=== PATIENT | female | born 1965 | race Caucasian/White ===

== ENCOUNTER 2019-03-09 08:21 | Day surgery (SDC) | payer BC ==
[~2019-03-09 08:21] MED LIST: AMOX500 PO; CALCIUM PO; CYCL10 PO; DOCU100 PO; ESTROGEN SUPPLEMENT PO; GABA800 PO; GUMMY VITAMIN PO; HYDACE5 PO; IBUP800 PO; LIDO5TP TOP; NEOPOLHYDS OT; OXYACE5T PO; PRED10 PO; Ultram50 MG PO
== END 2019-03-09 23:24 | disposition home or self-care (01) ==
LOC: RAD 08:21 → MOI US 08:45 → RAD 08:45
DX: R92.0 Mammographic microcalcification found on diagnostic imaging of breast (principal)
CPT/HCPCS: 19281

== ENCOUNTER 2019-03-09 09:56 | Day surgery (SDC) | payer BC ==
[~2019-03-09] VITALS: Ht 152.4 cm; Wt 53.2 kg
--- NOTE | 2019-03-09 11:23 | NUR ---
03/09/19 1123 Jovanni Barcenas ATTEMPTED IV IN RIGHT HAND AND IT WOULD NOT THREAD. IV STARTED IN THE RIGHT WRIST AND PATIENT TOLERATED WELL.
--- NOTE | 2019-03-09 13:01 | NUR ---
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 SURGEON DID VIEW RADIOGRAPH PERSONALLY
== END 2019-03-09 14:09 | disposition home or self-care (01) ==
LOC: ORSCSDS 09:56
PROVIDERS: Surgery
PROC: 0HBU0ZZ Excision of Left Breast, Open Approach (ICD-10-PCS; principal; 2019-03-09 11:30)
DX: R92.8 Other abnormal and inconclusive findings on diagnostic imaging of breast (principal); D24.2 Benign neoplasm of left breast; J44.9 Chronic obstructive pulmonary disease, unspecified; F17.210 Nicotine dependence, cigarettes, uncomplicated
CPT/HCPCS: 88307; J1100; J2250; J2405; J2704; J3010; J7120

== ENCOUNTER 2019-04-12 04:22 | Emergency (ER) | payer BC ==
[~2019-04-12] VITALS: Ht 157.5 cm; Wt 50.8 kg
[2019-04-12] MEDS ORDERED: Cleocin HCl150 MG PO (04:51)
== END 2019-04-12 05:41 | disposition home or self-care (01) ==
LOC: ER 04:22
DX: L03.032 Cellulitis of left toe (principal); F17.210 Nicotine dependence, cigarettes, uncomplicated
CPT/HCPCS: 96372; 99283-25; J1885

== ENCOUNTER → 2019-12-21 | Outpatient (CLI) | payer BC ==
[~2019-12-21] MED LIST changes: +Cleocin HCl150 MG PO
[2019-12-21 09:48] LABS: BASOPHILS ABSOLUTE AUTO 0.03 K/mm3 (0.00-0.23); BASOPHILS PERCENT AUTO 0 % (0-2); EOSINOPHILS PERCENT AUTO 3 % (0-6); Hematocrit 38.1 % (33.0-51.0); Hemoglobin 12.8 g/dL (11.5-16.0); IMMATURE GRAN ABSOLUTE AUTO 0.02 K/mm3 (0.00-0.10); IMMATURE GRAN PERCENT AUTO 0 % (0-1); LYMPHOCYTES ABSOLUTE AUTO 3.02 K/mm3 (0.84-5.20); LYMPHOCYTES PERCENT AUTO 37 % (21-46); MONOCYTES ABSOLUTE AUTO 0.46 K/mm3 (0.16-1.47); MONOCYTES PERCENT AUTO 6 % (4-13); Mean Corpuscular HGB 32.5 pg (26.0-34.0); Mean Corpuscular HGB Conc 33.6 g/dL (31.5-36.5); Mean Corpuscular Volume 97 fL (80-100); Mean Platelet Volume 10.2 fL (9.1-12.4); NEUTROPHILS ABSOLUTE AUTO 4.42 K/mm3 (1.96-9.15); NEUTROPHILS PERCENT AUTO 54 % (41-73); Platelet Count 329 K/mm3 (150-400); RDW Coefficient Variation 13.7 % (11.7-14.2); RDW Standard Deviation 49.1 fL (35.1-46.3); Red Blood Cell Count 3.94 M/mm3 (3.80-5.20); White Blood Cell Count 8.15 K/mm3 (4.00-11.30)
[2019-12-21 10:03] LABS: Anion Gap 9 mmol/L (6-16); Blood Urea Nitrogen 12 mg/dL (8-24); Bun/Creatinine Ratio 19.4 (12.0-20.0); CO2, Blood 27 mmol/L (21-32); Calcium, Blood 8.8 mg/dL (8.5-10.1); Chloride, Blood 107 mmol/L (98-108); Creatinine, Blood 0.62 mg/dL (0.40-1.00); Glomerular Filtration Rate >60 (60-); Glucose, Blood 83 mg/dL (70-99); Potassium, Blood 3.7 mmol/L (3.5-5.5); Sodium, Blood 143 mmol/L (136-145)
[2019-12-21 10:04] LABS: Troponin I <0.017 ng/mL (0.000-0.040)
== END | disposition home or self-care (01) ==
LOC: LAB SHORT 09:44 → LAB EV 09:44
PROVIDERS: Physician Assistant Surgical
DX: R05 Cough (principal); R07.89 Other chest pain
CPT/HCPCS: 80048; 84484; 85025

== ENCOUNTER 2021-02-26 21:00 | Emergency (ER) | payer BC ==
[~2021-02-26] VITALS: Ht 154.9 cm; Wt 50.8 kg
[2021-02-26] MEDS ORDERED: MUPIROCIN15 GM TOP (23:43)
== END 2021-02-27 00:02 | disposition home or self-care (01) ==
LOC: ER 21:00
DX: H60.12 Cellulitis of left external ear (principal); F17.210 Nicotine dependence, cigarettes, uncomplicated; Z91.040 Latex allergy status; Z91.018 Allergy to other foods
CPT/HCPCS: 99282; A9270

== ENCOUNTER → 2021-07-16 | Outpatient (CLI) | payer BC ==
[~2021-07-16] MED LIST changes: +MUPIROCIN15 GM TOP
[2021-07-17 10:19] LABS: Candida species (DNA Probe) Negative (NEGATIVE); G. vaginalis (DNA Probe) Negative (NEGATIVE); T. vaginalis (DNA Probe) Negative (NEGATIVE)
== END | disposition home or self-care (01) ==
LOC: LAB SHORT 16:53 → LAB 16:53
PROVIDERS: Obstetrics & Gynecology
DX: N89.8 Other specified noninflammatory disorders of vagina (principal)
CPT/HCPCS: 87480; 87510; 87660

== ENCOUNTER → 2021-08-08 | Outpatient (CLI) | payer BC | END | disposition home or self-care (01) | LOC: LAB 15:29 → LAB SHORT 15:29 | DX: S41.101A Unspecified open wound of right upper arm, initial encounter (principal) | CPT/HCPCS: 87070; 87077; 87147; 87186; 87205 ==

== ENCOUNTER → 2021-09-28 | Outpatient (CLI) | payer BC ==
[2021-09-29 09:02] LABS: HIV SCREEN 4TH GENERATION WRFX Non Reactive (Non Reactive)
== END | disposition home or self-care (01) ==
LOC: LAB SHORT 15:05 → LAB 15:05
PROVIDERS: Internal Medicine Infectious Disease
DX: A49.02 Methicillin resistant Staphylococcus aureus infection, unspecified site (principal)
CPT/HCPCS: 87389

== ENCOUNTER 2022-07-16 10:20 | Day surgery (SDC) | payer BC ==
[~2022-07-16] VITALS: Ht 157.5 cm; Wt 64.8 kg
--- NOTE | 2022-07-16 13:17 | NUR ---
07/16/22 1317 MORENITA ANN 10MLS OF LIDOCAINE 1% INJECTED BEFORE START OF CASE BY DR. AMOR. 30MLS OF ROPIVACAINE 0.5% POURED ONTO STERILE FIELD FOR USE DURING CASE.
--- NOTE | 2022-07-16 14:42 | NUR ---
07/16/22 1442 Lisa Flanagan. PT ACCOMPANIED BY AT CHAIRSIDE. PT APPEARS IN GOOD SPIRITS AND IS TALKING WITH FAMILY AND NURSING STAFF. PT TOLERATING PO FLUIDS AND SNACKS WELL. PT DENIES PAIN AND NAUSEA. OP LIMB IS ELEVATED AND ICE APPLIED AT THE ANKLE.
== END 2022-07-16 15:15 | disposition home or self-care (01) ==
LOC: ORSCSDS 10:20
DX: M20.11 Hallux valgus (acquired), right foot (principal); M79.671 Pain in right foot; F17.210 Nicotine dependence, cigarettes, uncomplicated; F41.9 Anxiety disorder, unspecified
CPT/HCPCS: C1713; C1769; J1100; J2250; J2405; J2704; J2795; J3010; J7120

== ENCOUNTER 2025-06-28 11:01 | Day surgery (SDC) | payer OTHER ==
[~2025-06-28] VITALS: Ht 152.4 cm; Wt 49.2 kg
[2025-06-28] MEDS ORDERED: Clindamycin 900mg in D5W 50ML 0 ML IV ONE (11:31)
[2025-06-28] MEDS ORDERED: albuterol sulfate HF (11:39)
[2025-06-28] MEDS ORDERED: IBUP200 (11:40)
[2025-06-28] MEDS ORDERED: MASOPHEN500 M2 PO (11:40)
--- NOTE | 2025-06-28 12:12 | NUR ---
06/28/[address] SAID ANCEF IS OKAY TO USE DESPITE PCN ALLERGY; PT TOLERATED CLINDAMYCIN LAST SUREGERY WHEN GIVEN
[2025-06-28] MEDS ORDERED: CeFAZolin Sodium 2,000 MG VIAL ONE (12:27)
[2025-06-28] MEDS ORDERED: Lidocaine HCl 2% 10 ML SDA ONE (12:32)
[2025-06-28] MEDS ORDERED: Lidocaine HCl 2% 10 ML SDA INJ ONE (12:55)
--- NOTE | 2025-06-28 13:23 | NUR ---
06/28/[address] REMOVED 2 SCREWS FROM RIGHT FOOT
[2025-06-28] MEDS ORDERED: Bupivacaine 0.5% W/EPI 1:200000 SDV 30 ML Vial INJ ONE (13:35)
--- NOTE | 2025-06-28 14:13 | NUR ---
06/28/25 1413 Debra Goodman ASSUMED CARE OF PT 1410. PT UP IN CHAIR, A&O, TALKATIVE. LUNGS CLEAR. OPERATIVE TOES DIRTY BUT DRESSING & POSTOP SHOE CDI. TOLERATING COFFEE.
[2025-06-28 14:16] VITALS: BP 131/73
== END 2025-06-28 14:32 | disposition home or self-care (01) ==
LOC: ORSCSDS 11:01
PROVIDERS: Podiatrist Foot & Ankle Surgery
PROC: 0QPN04Z Removal of Internal Fixation Device from Right Metatarsal, Open Approach (ICD-10-PCS; principal; 2025-06-28 12:45)
DX: M21.6X1 Other acquired deformities of right foot (principal); T84.84XA Pain due to internal orthopedic prosthetic devices, implants and grafts, initial encounter; J44.9 Chronic obstructive pulmonary disease, unspecified; F17.210 Nicotine dependence, cigarettes, uncomplicated; K21.9 Gastro-esophageal reflux disease without esophagitis; Z79.899 Other long term (current) drug therapy
CPT/HCPCS: A6253; J0690; J2003; J2704; J7120